=== PATIENT | female | born 1980 | race Caucasian/White ===

== ENCOUNTER 2016-12-12 13:46 | Emergency (ER) | payer OTHER | END 2016-12-12 14:48 | disposition home or self-care (01) | LOC: ER 13:46 | DX: S39.012A Strain of muscle, fascia and tendon of lower back, initial encounter (principal); F17.210 Nicotine dependence, cigarettes, uncomplicated; Z88.0 Allergy status to penicillin; V89.2XXA Person injured in unspecified motor-vehicle accident, traffic, initial encounter ==